=== PATIENT | male | born 1995 | race Hispanic/Latino ===

== ENCOUNTER 2017-10-30 00:11 | Emergency (ER) | payer BC, OTHER ==
[2017-10-30] MEDS ORDERED: Adacel (T-DAP) 0.5 ML VIAL ONE (00:45)
== END 2017-10-30 01:00 | disposition home or self-care (01) ==
LOC: ERS 00:11
DX: S61.412A Laceration without foreign body of left hand, initial encounter (principal); W26.0XXA Contact with knife, initial encounter; Y92.009 Unspecified place in unspecified non-institutional (private) residence as the place of occurrence of the external cause
CPT/HCPCS: 12001; 90471; 90715